=== PATIENT | female | born 1940 | race Caucasian/White ===

== ENCOUNTER 2017-12-19 16:42 | Inpatient (IN) | payer OTHER ==
[~2017-12-19] VITALS: Ht 157.5 cm; Wt 89.0 kg
[2017-12-19 16:42] VITALS: BP 164/80
[2017-12-19 17:39] LABS: BASO % 0.4 % (0.0-1.0); EOS % 0.2 % (1.0-4.0); HEMATOCRIT 33.6 % (37.0-47.0); HEMOGLOBIN 11.5 g/dl (12.0-16.0); LYMPH # 0.6 10*3/uL (1.3-4.4); LYMPH % 10.9 % (27.0-41.0); MEAN CELL VOLUME 81.6 fl (81.0-99.0); MEAN CORPUSCULAR HGB 27.9 pg (27.0-31.0); MEAN CORPUSCULAR HGB CONC 34.2 g/dl (33.0-37.0); MEAN PLATELET VOLUME 8.1 fl (9.6-12.3); MONO # 0.6 10*3/uL (0.1-1.0); MONO % 9.9 % (3.0-9.0); NEUT # 4.4 10*3/uL (2.3-7.9); NEUT % 78.2 % (47.0-73.0); PLATELET COUNT AUTOMATED 256 10*3/uL (130-400); RED BLOOD COUNT 4.12 10*6/uL (4.10-5.10); RED CELL DISTRI WIDTH 14.4 % (0-14.5); WHITE BLOOD COUNT 5.7 10*3/uL (4.8-10.8)
[2017-12-19 17:51] LABS: ACT PARTIAL THROMBO TIME 28.9 SECONDS (20.8-31.5); INTERNATIONAL NORM RATIO 1.1 (2.0-3.5)
[2017-12-19 17:56] LABS: BILIRUBIN NEGATIVE (NEGATIVE); BLOOD NEGATIVE (NEGATIVE); CLARITY SL CLOUDY (CLEAR); COLOR YELLOW (YELLOW); GLUCOSE NEGATIVE (NEGATIVE); KETONE NEGATIVE (NEGATIVE); LEUKO ESTERASE TRACE (NEGATIVE); NITRITE POSITIVE (NEGATIVE); SPECIFIC GRAVITY 1.015 (1.005-1.030); UROBILINOGEN 0.2 E.U./dl (0.2-1.0)
[2017-12-19 18:01] LABS: ALBUMIN 3.3 gm/dl (3.1-4.5); ALKALINE PHOSPHATASE 95 U/L (45-117); BUN 6 mg/dl (7-24); CHLORIDE 88 mmol/L (98-107); CREATININE 0.47 mg/dL (0.55-1.02); POTASSIUM 2.9 mmol/L (3.5-5.1); SGOT/AST 13 IU/L (3-35); SGPT/ALT 13 U/L (12-78); SODIUM 128 mmol/L (136-145); TOTAL PROTEIN 6.9 gm/dL (6.4-8.2); TROPONIN I < 0.015 ng/ml (<0.045)
[2017-12-19 18:03] LABS: BACTERIA 3+; EPITHELIAL CELLS 0-2; WBC 21-30 wbc/hpf (0-5)
[2017-12-19 20:00] VITALS: BP 198/87
[2017-12-19 20:06] VITALS: BP 188/67
[2017-12-19 20:15] VITALS: BP 180/72
[2017-12-19] MEDS ORDERED: LOPRESSOR50 M1 PO (21:02)
[2017-12-19] MEDS ORDERED: LOSARTAN POTAS100 M1 PO (21:03)
[2017-12-19] MEDS ORDERED: HYDROCHLOROTH12.5 M2 PO (21:05)
[2017-12-19] MEDS ORDERED: HYDROCHLOROTHIA25 M1 PO (21:08)
[2017-12-19] MEDS ORDERED: PANTOPRAZOLE SO40 MG PO (21:08)
[2017-12-19] MEDS ORDERED: SIMVASTATIN40 MG PO (21:08)
[2017-12-19] MEDS ORDERED: Percocet 325 MG1 TAB PO (21:14)
[2017-12-19] MEDS ORDERED: VITAMIN B-121000 MC2 PO (21:15)
[2017-12-19] MEDS ORDERED: VITAMIN D32000 UNIT PO (21:15)
[2017-12-19] MEDS ORDERED: CALCIUM +D & M1 EACH PO (21:16)
[2017-12-19] MEDS ORDERED: FLAXSEED-FISH-400 MG PO (21:17)
[2017-12-19] MEDS ORDERED: FLAX OIL1000 M1 PO (21:17)
[2017-12-19] MEDS ORDERED: PRESERVISION A1 EAC2 PO (21:18)
[2017-12-19] MEDS ORDERED: STOOL SOFTENER1 EAC3 PO (21:19)
[2017-12-19] MEDS ORDERED: CARBAMAZEPINE100 MG PO (21:21)
[2017-12-19] MEDS ORDERED: ARTHRITIS PAIN650 MG PO (21:22)
[2017-12-20] VITALS: BP 120/71; BP 140/68
[2017-12-20 06:13] LABS: BASO % 0.4 % (0.0-1.0); EOS # 0.1 10*3/uL (0.0-0.4); HEMATOCRIT 33.7 % (37.0-47.0); LYMPH % 19.5 % (27.0-41.0); MEAN CORPUSCULAR HGB 27.1 pg (27.0-31.0); MEAN CORPUSCULAR HGB CONC 32.6 g/dl (33.0-37.0); MEAN PLATELET VOLUME 8.6 fl (9.6-12.3); MONO # 0.6 10*3/uL (0.1-1.0); MONO % 11.4 % (3.0-9.0); NEUT # 3.5 10*3/uL (2.3-7.9); NEUT % 67.3 % (47.0-73.0); PLATELET COUNT AUTOMATED 279 10*3/uL (130-400); RED BLOOD COUNT 4.06 10*6/uL (4.10-5.10); RED CELL DISTRI WIDTH 14.5 % (0-14.5); WHITE BLOOD COUNT 5.2 10*3/uL (4.8-10.8)
[2017-12-20 06:43] LABS: BUN 7 mg/dl (7-24); CHLORIDE 93 mmol/L (98-107); CHOLESTEROL 180 mg/dL (<200); CREATININE 0.48 mg/dL (0.55-1.02); PHOSPHOROUS 3.3 mg/dL (2.5-4.9); POTASSIUM 3.2 mmol/L (3.5-5.1); SODIUM 129 mmol/L (136-145); TRIGLYCERIDES 69 mg/dl (<150); VLDL CHOLESTEROL 14 mg/dL (6-40)
[2017-12-20 06:53] LABS: HDL CHOLESTEROL 75 mg/dl (40-60); LDL CHOLESTEROL 91 mg/dL (9-159)
[2017-12-20 07:50] LABS: VITAMIN D, 25-HYDROXY 37.1 ng/mL (30-100)
[2017-12-20 08:00] VITALS: BP 138/70
[2017-12-20 12:00] VITALS: BP 134/70
[2017-12-20 16:00] VITALS: BP 145/68
[2017-12-20 20:00] VITALS: BP 151/65
[2017-12-21] VITALS: BP 171/68
[2017-12-21 06:52] LABS: BASO % 0.4 % (0.0-1.0); EOS # 0.1 10*3/uL (0.0-0.4); EOS % 1.3 % (1.0-4.0); HEMOGLOBIN 10.1 g/dl (12.0-16.0); MEAN CELL VOLUME 84.7 fl (81.0-99.0); MEAN CORPUSCULAR HGB 27.6 pg (27.0-31.0); MEAN CORPUSCULAR HGB CONC 32.6 g/dl (33.0-37.0); MEAN PLATELET VOLUME 8.9 fl (9.6-12.3); MONO # 0.8 10*3/uL (0.1-1.0); MONO % 13.7 % (3.0-9.0); NEUT # 3.6 10*3/uL (2.3-7.9); NEUT % 65.2 % (47.0-73.0); PLATELET COUNT AUTOMATED 264 10*3/uL (130-400); RED BLOOD COUNT 3.66 10*6/uL (4.10-5.10); RED CELL DISTRI WIDTH 14.8 % (0-14.5); WHITE BLOOD COUNT 5.5 10*3/uL (4.8-10.8)
[2017-12-21 07:22] LABS: BUN 6 mg/dl (7-24); CHLORIDE 98 mmol/L (98-107); CREATININE 0.43 mg/dL (0.55-1.02); POTASSIUM 3.3 mmol/L (3.5-5.1); SODIUM 134 mmol/L (136-145)
[2017-12-21 08:00] VITALS: BP 152/74
[2017-12-21 12:00] VITALS: BP 170/85
[2017-12-21 16:00] VITALS: BP 171/85
[2017-12-21 20:00] VITALS: BP 166/95
[2017-12-22] VITALS: BP 151/74
[2017-12-22 08:00] VITALS: BP 169/60
[2017-12-22 12:00] VITALS: BP 153/55
[2017-12-22 16:00] VITALS: BP 147/58; BP 94/50
[2017-12-22 20:00] VITALS: BP 153/67
[2017-12-23] VITALS: BP 138/61
[2017-12-23 07:03] LABS: BASO % 0.3 % (0.0-1.0); EOS # 0.1 10*3/uL (0.0-0.4); EOS % 0.8 % (1.0-4.0); HEMATOCRIT 31.9 % (37.0-47.0); HEMOGLOBIN 10.7 g/dl (12.0-16.0); LYMPH # 0.9 10*3/uL (1.3-4.4); LYMPH % 11.3 % (27.0-41.0); MEAN CELL VOLUME 82.6 fl (81.0-99.0); MEAN CORPUSCULAR HGB 27.7 pg (27.0-31.0); MEAN CORPUSCULAR HGB CONC 33.5 g/dl (33.0-37.0); MEAN PLATELET VOLUME 8.9 fl (9.6-12.3); MONO # 0.9 10*3/uL (0.1-1.0); MONO % 11.7 % (3.0-9.0); NEUT % 75.3 % (47.0-73.0); PLATELET COUNT AUTOMATED 276 10*3/uL (130-400); RED BLOOD COUNT 3.86 10*6/uL (4.10-5.10); RED CELL DISTRI WIDTH 14.9 % (0-14.5)
[2017-12-23 07:24] LABS: BUN 10 mg/dl (7-24); CHLORIDE 91 mmol/L (98-107); POTASSIUM 3.2 mmol/L (3.5-5.1); SODIUM 129 mmol/L (136-145)
[2017-12-23 07:26] LABS: CREATININE 0.42 mg/dL (0.55-1.02)
[2017-12-23 08:00] VITALS: BP 144/64
[2017-12-23 12:00] VITALS: BP 153/83
[2017-12-23] MEDS ORDERED: CIPRO500 MG PO (14:04)
[2017-12-23] MEDS ORDERED: B12,B-12,B 12500 MC1 PO (14:04)
== END 2017-12-23 15:46 | DRG 537 ==
LOC: ED 16:42 → 4E 19:25 → EDHOLD 19:25 → 4E 19:59
PROVIDERS: Internal Medicine; Physician Assistant; Student in an Organized Health Care Education/Training Program
DX: S76.012A Strain of muscle, fascia and tendon of left hip, initial encounter (principal); E87.1 Hypo-osmolality and hyponatremia; E87.8 Other disorders of electrolyte and fluid balance, not elsewhere classified; D64.9 Anemia, unspecified; N30.01 Acute cystitis with hematuria; M70.62 Trochanteric bursitis, left hip; M76.02 Gluteal tendinitis, left hip; J44.9 Chronic obstructive pulmonary disease, unspecified; D72.9 Disorder of white blood cells, unspecified; D72.810 Lymphocytopenia; E87.6 Hypokalemia; R73.9 Hyperglycemia, unspecified; K57.30 Diverticulosis of large intestine without perforation or abscess without bleeding; E66.9 Obesity, unspecified; I10 Essential (primary) hypertension; E78.5 Hyperlipidemia, unspecified; Z66 Do not resuscitate; Z51.5 Encounter for palliative care; W01.0XXA Fall on same level from slipping, tripping and stumbling without subsequent striking against object, initial encounter; M19.112 Post-traumatic osteoarthritis, left shoulder; Z96.662 Presence of left artificial ankle joint; Z96.611 Presence of right artificial shoulder joint; Z87.891 Personal history of nicotine dependence; Z82.49 Family history of ischemic heart disease and other diseases of the circulatory system; Z84.1 Family history of disorders of kidney and ureter; Z99.89 Dependence on other enabling machines and devices; Z80.9 Family history of malignant neoplasm, unspecified; Z88.0 Allergy status to penicillin; Z68.35 Body mass index [BMI] 35.0-35.9, adult; Y93.89 Activity, other specified; Y92.098 Other place in other non-institutional residence as the place of occurrence of the external cause; Y99.8 Other external cause status